=== PATIENT | male | born 1995 | race Caucasian/White ===

== ENCOUNTER 2019-12-16 14:10 | Emergency (ER) | payer SELFPAY ==
[~2019-12-16] VITALS: Ht 175.3 cm; Wt 95.0 kg
[2019-12-16] MEDS ORDERED: KETOROLAC 60MG/2ML VIAL IM ONE (16:45)
[2019-12-16 18:23] VITALS: BP 157/79
== END 2019-12-16 18:27 | disposition home or self-care (01) ==
LOC: ER 14:10
DX: M54.2 Cervicalgia (principal); M54.9 Dorsalgia, unspecified; M79.632 Pain in left forearm; Z90.49 Acquired absence of other specified parts of digestive tract
CPT/HCPCS: 72070; 72100; 72125; 73090; 96372; 99284; J1885